=== PATIENT | male | born 1985 | race Caucasian/White ===

== ENCOUNTER 2019-08-09 08:41 | Emergency (ER) | payer OTHER ==
[~2019-08-09] VITALS: Ht 180.3 cm; Wt 83.3 kg
[2019-08-09] MEDS ORDERED: KETOROLAC 30 MG/ML VIAL IVP STA (08:52)
[2019-08-09] MEDS ORDERED: NS IV 1000 ML 1,000 ML IV STA (08:52)
[2019-08-09] MEDS ORDERED: PANTOPRAZOLE 40 MG (PROTONIX) VIAL IV STA (08:52)
[2019-08-09] MEDS ORDERED: ASPIRIN 81 MG CHEW (CHILDREN'S ASA) PO ONE (09:00)
--- NOTE | 2019-08-09 09:00 | ED Chest Pain ---
General Chief Complaint: Chest Pain Stated Complaint: CHEST PAIN Source: patient History of Present Illness Date Seen by Provider: Aug 09, 2019 Time Seen by Provider: 08:42 Initial Comments 33-year-old male presenting with complaints of sharp central chest pain. He states he woke up at 5 AM with this pain. He had some similar pain last week after yelling at the coworker. At that point and just lasted for a few seconds. However since waking up at 5 AM he's had pain that has been fairly constant. It is worse with movement and walking if he stays still it is not as bad. He has sharp stabbing pain that is substernal and at times goes between his shoulder blades. He denies having any nausea or vomiting. He has no shortness of breath with this. He has not tried taking anything for the pain. He had sweating when he first woke up with the pain but is not currently having any sweating. He denies any other medical problems such as high blood pressure, diabetes, asthma or breathing problems. He does smoke at least a half pack cigarettes a day. His father and paternal grandfather both have cardiac disease Allergies and Home Medications Allergies Coded Allergies: No Known Drug Allergies (Unverified , 08/09/19) Home Medications Pantoprazole Sodium 40 Mg Tablet.dr, 40 MG PO DAILY Prescribed by: LAUREL ARZATE on 08/09/19 4257 Patient Home Medication List Home Medication List Reviewed: Yes Review of Systems Review of Systems Constitutional: No chills, No dizziness, No fever EENTM: No Symptoms Reported Respiratory: Cough (occasional cough and when he has coughed this am it makes his chest pain worse) Cardiovascular: See HPI, Chest Pain (sharp substernal chest pain); Denies Edema, Denies Lightheadedness, Denies Palpitations, Denies Syncope Gastrointestinal: Denies Abdominal Pain, Denies Nausea, Denies Vomiting Genitourinary: No Symptoms Reported Musculoskeletal: back pain (sharp chest pain will occasionally go to his back between his shoulder blades) Skin: no symptoms reported Psychiatric/Neurological: Anxiety (worried about the chest pain) Endocrine: No Symptoms Reported Hematologic/Lymphatic: No Symptoms Reported Past Uqdngar-Sfhzio-Newgop Hx Past Med/Social Hx: Reviewed Nursing Past Med/Soc Hx Patient Social History Recent Foreign Travel: No Contact w/Someone Who Travel: No Past Medical History Surgeries: Yes Orthopedic (right thumb) Respiratory: No Cardiac: No Neurological: No Genitourinary: No Gastrointestinal: No Musculoskeletal: No Endocrine: No HEENT: No Cancer: No Psychosocial: No Integumentary: No Physical Exam Vital Signs Vital Signs - First Documented 08/09/19 08/09/19 08:41 08:42 Temp 37.7 Pulse 111 Resp 20 B/P (MAP) 140/80 (100) Pulse Ox 99 O2 Delivery Room Air Capillary Refill : Height, Weight, BMI Height: '" Weight: lbs. oz. kg; BMI Method: General Appearance: WD/WN, Anxious, Mild Distress HEENT: PERRL/EOMI, Normal ENT Inspection, Pharynx Normal Neck: Full Range of Motion, Normal Inspection, Non Tender, Supple Respiratory: Chest Non Tender, Lungs Clear, Normal Breath Sounds, No Accessory Muscle Use, No Respiratory Distress Cardiovascular: No Edema, No Gallop, No JVD, No Murmur, Normal Peripheral Pulses, Tachycardia Gastrointestinal: Normal Bowel Sounds, No Pulsatile Mass, Non Tender, Soft Extremity: Normal Capillary Refill, Normal Inspection, Normal Range of Motion, Non Tender, No Calf Tenderness, No Pedal Edema Neurologic/Psychiatric: Alert, Oriented x3, No Motor/Sensory Deficits, tax advisor II- XII Norm as Tested Skin: Normal Color, Warm/Dry Progress/Results/Core Measures Results/Orders Lab Results Laboratory Tests Test 08/09/19 08:45 Range/Units White Blood Count 12.9 H 4.3-11.0 10^3/uL Red Blood Count 4.72 4.35-5.85 10^6/uL Hemoglobin 15.2 13.3-17.7 G/DL Hematocrit 45 40-54 % Mean Corpuscular Volume 95 80-99 FL Mean Corpuscular Hemoglobin 32 25-34 PG Mean Corpuscular Hemoglobin Concent 34 32-36 G/DL Red Cell Distribution Width 12.5 10.0-14.5 % Platelet Count 239 130-400 10^3/uL Mean Platelet Volume 9.3 7.4-10.4 FL Neutrophils (%) (Auto) 63 42-75 % Lymphocytes (%) (Auto) 26 12-44 % Monocytes (%) (Auto) 8 0-12 % Eosinophils (%) (Auto) 1 0-10 % Basophils (%) (Auto) 0 0-10 % Neutrophils # (Auto) 8.2 H 1.8-7.8 X 10^3 Lymphocytes # (Auto) 3.4 1.0-4.0 X 10^3 Monocytes # (Auto) 1.1 H 0.0-1.0 X 10^3 Eosinophils # (Auto) 0.2 0.0-0.3 10^3/uL Basophils # (Auto) 0.1 0.0-0.1 10^3/uL Prothrombin Time 12.9 12.2-14.7 SEC INR Comment 0.9 0.8-1.4 Activated Partial Thromboplast Time 28 24-35 SEC Sodium Level 136 135-145 MMOL/L Potassium Level 4.2 3.6-5.0 MMOL/L Chloride Level 98 98-107 MMOL/L Carbon Dioxide Level 25 21-32 MMOL/L Anion Gap 13 5-14 MMOL/L Blood Urea Nitrogen 10 7-18 MG/DL Creatinine 0.92 0.60-1.30 MG/DL Estimat Glomerular Filtration Rate > 60 BUN/Creatinine Ratio 11 Glucose Level 122 H 70-105 MG/DL Calcium Level 9.5 8.5-10.1 MG/DL Corrected Calcium 8.5-10.1 MG/DL Magnesium Level 1.9 1.6-2.4 MG/DL Total Bilirubin 0.3 0.1-1.0 MG/DL Aspartate Amino Transf (AST/SGOT) 22 5-34 U/L Alanine Aminotransferase (ALT/SGPT) 18 0-55 U/L Alkaline Phosphatase 93 40-136 U/L Troponin I < 0.30 <0.30 NG/ML Pro-B-Type Natriuretic Peptide 5.6 <75.0 PG/ML Total Protein 7.6 6.4-8.2 GM/DL Albumin 4.7 H 3.2-4.5 GM/DL Lipase 41 8-78 U/L My Orders Orders - LAUREL ARZATE MD Cbc With Automated Diff (08/09/19 08:52) Magnesium (08/09/19 08:52) Ekg Tracing (08/09/19 08:52) Comprehensive Metabolic Panel (08/09/19 08:52) Protime With Inr (08/09/19 08:52) Partial Thromboplastin Time (08/09/19 08:52) O2 (08/09/19 08:52) Monitor-Rhythm Ecg Trace Only (08/09/19 08:52) Aspirin Chewable Tablet (Baby Aspirin Ch (08/09/19 09:00) Ed Iv/Invasive Line Start (08/09/19 08:52) Lipase (08/09/19 08:52) Troponin I Fs (08/09/19 08:52) Probnp Fs (08/09/19 08:52) Ketorolac Injection (Toradol Injection) (08/09/19 08:52) Pantoprazole Injection (Protonix Injecti (08/09/19 08:52) Ns Iv 1000 Ml (Sodium Chloride 0.9%) (08/09/19 08:52) Chest Pa/Lat (2 View) (08/09/19 08:52) Medications Given in ED Current Medications Medications Dose Ordered Sig/Jose Elias Route Start Time Stop Time Status Last Admin Dose Admin Aspirin 324 mg ONCE ONCE PO 08/09/19 09:00 08/09/19 09:01 DC 08/09/19 09:00 324 MG Vital Signs/I&O 08/09/19 08/09/19 08/09/19 08:41 08:42 09:59 Temp 37.7 Pulse 111 79 Resp 20 18 B/P (MAP) 140/80 (100) 144/92 Pulse Ox 99 100 O2 Delivery Room Air Room Air Room Air Progress Progress Note #1: Progress Note Will check labs as well as chest x-ray and electrocardiogram. Since the pain is constant and sharp in nature will give him aspirin but also Toradol. Try a dose of Protonix in case any of this is esophageal spasm more GI related since it was there when he woke up this morning and he states that every 10 or 15 minutes it lessens and then worsens again. Progress Note #2: Time: 09:29 Progress Note CXR clear and shows no acute process. ECG without ST elevation. Labs show a mild elevation of his WBC count to 12.9. Chemistry and coags are normal, including his cardiac enzymes. Will check to see if his symptoms are any better after treatment in the ED. His vital signs have remained stable with HR in the 70s and O2 still at 100% on RA. His BP has been around 140/80-90. Progress Note #3: Time: 09:48 Progress Note Updated patient and family on results. Will have him follow up with Dr. Guajardo for continued evaluation. Discharge on a proton pump inhibitor in case any of this was more GI related since he reports it having a cycle of pain throbbing/spasm that varies in intensity. Advised it might be musculoskeletal in nature as well, but will try the GI meds first. Counseled on follow up and return precautions Initial ECG Impression Date: Aug 09, 2019 Initial ECG Impression Time: 08:40 Initial ECG Rate: 108 Initial ECG Rhythm: S.Tach Initial ECG Comparisson: No Previous ECG Available Comment Sinus tachycardia with a heart rate 108 bpm. GA interval 133 ms. QT interval 337 ms and a QTc interval of 452 ms. He has no acute ST elevation. There is no prior tracing available for comparison. Diagnostic Imaging Diagonstic Imaging: Xray Plain Films/CT/US/NM/MRI: chest Comments NAME: CAROL ZULETA [facility] REC#: [id number] PT STATUS: REG ER : 1985 PHYSICIAN: LAUREL ARZATE MD ADMIT DATE: 08/09/19/ER FS Draft Date of Exam:08/09/19 CHEST PA/LAT (2 VIEW) EXAMINATION: CHEST (PA AND LATERAL) CLINICAL INDICATION: 33-year-old male, chest pain and cough. COMPARISON: None. FINDINGS: Heart size and mediastinal contours are unremarkable. There is no identified pneumothorax. There is no pleural effusion. There is no identified focal airspace consolidation. IMPRESSION: No identified acute cardiopulmonary abnormality. Dictated on workstation # [id number] Dict: 08/09/19919 Trans: 08/09/19920 [facility] [id number] Interpreted by: JUNG NORWOOD MD Electronically signed by: Departure Impression Primary Impression: Substernal chest pain Additional Impression: Esophageal spasm Disposition: 01 HOME, SELF-CARE Condition: Stable Departure-Patient Inst. Decision time for Depature: 09:52 Referrals: TABATHA GUAJARDO MD (PCP/Family) Primary Care Physician Patient Instructions: Acid Reflux (Gastroesophageal Reflux Disease), Adult (DC), Chest Pain (DC) Add. Discharge Instructions: Try following a bland diet and take acid reducing medicine to see if that helps prevent further episodes of this pain. Check back with Dr. Guajardo for continued evaluation and he may want you to do some additional testing All discharge instructions reviewed with patient and/or family. Voiced understanding. Scripts Pantoprazole Sodium (Pantoprazole Sodium) 40 Mg Tablet. 40 MG PO DAILY for 30 Days, #30 TAB 0 Refills Prov: LAUREL ARZATE MD 08/09/19 Work/School Note: Work Release Form Date Seen in the Emergency Department: Aug 09, 2019 Return to Work: Aug 10, 2019 Restrictions: No Restrictions LAUREL ARZATE MD Aug 09, 2019 09:00
[2019-08-09 09:01] LABS: HEMATOCRIT 45 % (40-54); HEMOGLOBIN 15.2 G/DL (13.3-17.7); LYMPHOCYTES % (AUTO) 26 % (12-44); MEAN CORPUSCULAR HEMOGLOBIN 32 PG (25-34); MEAN CORPUSCULAR HGB CONC 34 G/DL (32-36); MEAN CORPUSCULAR VOLUME 95 FL (80-99); MEAN PLATELET VOLUME 9.3 FL (7.4-10.4); NEUTROPHILS % (AUTO) 63 % (42-75); PLATELET COUNT 239 10^3/uL (130-400); RED CELL DISTRIBUTION WIDTH 12.5 % (10.0-14.5); WHITE BLOOD COUNT 12.9 10^3/uL (4.3-11.0)
[2019-08-09 09:02] LABS: BASOPHILS # (AUTO) 0.1 10^3/uL (0.0-0.1); BASOPHILS % (AUTO) 0 % (0-10); EOSINOPHILS # (AUTO) 0.2 10^3/uL (0.0-0.3); EOSINOPHILS % (AUTO) 1 % (0-10); LYMPHOCYTES # (AUTO) 3.4 X 10^3 (1.0-4.0); MONOCYTES # (AUTO) 1.1 X 10^3 (0.0-1.0); MONOCYTES % (AUTO) 8 % (0-12); NEUTROPHILS # (AUTO) 8.2 X 10^3 (1.8-7.8)
[2019-08-09 09:10] LABS: PROTHROMBIN TIME PATIENT 12.9 SEC (12.2-14.7)
[2019-08-09 09:11] LABS: INR 0.9 (0.8-1.4)
--- NOTE | 2019-08-09 09:22 | Diagnostic Imaging Report ---
EXAMINATION: CHEST (PA AND LATERAL) CLINICAL INDICATION: 33-year-old male, chest pain and cough. COMPARISON: None. FINDINGS: Heart size and mediastinal contours are unremarkable. There is no identified pneumothorax. There is no pleural effusion. There is no identified focal airspace consolidation. IMPRESSION: No identified acute cardiopulmonary abnormality. Dictated by: Dictated on workstation # [id number]
[2019-08-09 09:27] LABS: CARBON DIOXIDE 25 MMOL/L (21-32); CHLORIDE 98 MMOL/L (98-107); POTASSIUM 4.2 MMOL/L (3.6-5.0); SODIUM 136 MMOL/L (135-145)
[2019-08-09 09:28] LABS: ALANINE AMINOTRANSFERASE 18 U/L (0-55); ALBUMIN 4.7 GM/DL (3.2-4.5); ALKALINE PHOSPHATASE 93 U/L (40-136); BILIRUBIN,TOTAL 0.3 MG/DL (0.1-1.0); BUN/CREATININE RATIO 11; CALCIUM 9.5 MG/DL (8.5-10.1); CREATININE SERUM 0.92 MG/DL (0.60-1.30); GFR ESTIMATED > 60; GLUCOSE 122 MG/DL (70-105); LIPASE 41 U/L (8-78); MAGNESIUM 1.9 MG/DL (1.6-2.4); TOTAL PROTEIN 7.6 GM/DL (6.4-8.2)
[2019-08-09] MEDS ORDERED: PANT40TA3 PO (09:54)
[2019-08-09 09:59] VITALS: BP 144/92
== END 2019-08-09 09:58 | disposition home or self-care (01) ==
LOC: ER FS 08:43
DX: R07.2 Precordial pain (principal); K22.4 Dyskinesia of esophagus; F17.210 Nicotine dependence, cigarettes, uncomplicated
CPT/HCPCS: 36415; 71046; 80053; 83690; 83735; 83880; 84484; 85025; 85610; 85730; 93005; 93041; 96361; 96374; 96375